=== PATIENT | male | born 1965 | race Asian ===

== ENCOUNTER 2018-04-29 17:17 | Emergency (ER) | payer MEDICARE, OTHER ==
[~2018-04-29] VITALS: Ht 167.6 cm; Wt 70.9 kg
[2018-04-29] MEDS ORDERED: HYDR25TA PO (17:30)
[2018-04-29] MEDS ORDERED: LISI-660 PO (17:30)
[2018-04-29] MEDS ORDERED: FLUORESCEIN SODIUM 1 MG STRIP ONE (18:28)
[2018-04-29] MEDS ORDERED: PROPARACAINE HCL 0.5% 15 ML OPHTHALMIC SOLUTION OS ONE (18:30)
[2018-04-29] MEDS ORDERED: ACETAMINOPHEN 500 MG TABLET PO ONE (18:30)
[2018-04-29] MEDS ORDERED: GENTAMICIN SULFATE 0.3% OPHTHALMIC SOLUTION 5 ML OS ONE (19:15)
[2018-04-29 20:37] VITALS: BP 140/79
== END 2018-04-29 20:42 | disposition home or self-care (01) ==
LOC: EMS 17:18
DX: S05.12XA Contusion of eyeball and orbital tissues, left eye, initial encounter (principal); I10 Essential (primary) hypertension; Z96.649 Presence of unspecified artificial hip joint; Z96.659 Presence of unspecified artificial knee joint; Z98.890 Other specified postprocedural states; Z88.1 Allergy status to other antibiotic agents; Z88.2 Allergy status to sulfonamides; Z79.899 Other long term (current) drug therapy; X58.XXXA Exposure to other specified factors, initial encounter; Y93.89 Activity, other specified; Y92.89 Other specified places as the place of occurrence of the external cause; Y99.8 Other external cause status
CPT/HCPCS: 99173